=== PATIENT | male | born 1980 | race Caucasian/White ===

== ENCOUNTER → 2023-11-02 | Outpatient (CLI) | payer OTHER, SELFPAY ==
--- NOTE | 2023-11-02 10:33 | RAD_ITS ---
STUDY: X-RAY - RIGHT FOOT CLINICAL: Male, 43 years old. RIGHT FOOT ARTHRITIS TECHNIQUE: 2 views of the right foot. COMPARISON: None. FINDINGS: Normal talus, calcaneus, and tarsal bones. Normal visualized subtalar, talonavicular, calcaneocuboid, tarsal and tarsometatarsal articulations. Normal metatarsi. Normal metatarsophalangeal joint of the great toe. Normal tibial and fibular sesamoid bones. Normal interphalangeal joint of the great toe. Normal phalanges of the great toe. Normal second through fifth metatarsophalangeal joints. Normal interphalangeal joints and phalanges of the lesser toes. The soft tissue structures are unremarkable. There is no demonstrated fracture. RAD/Foot 2 Views IMPRESSION: Normal x-ray examination of the right foot. Electronically Signed: Donnie Nava MD at 11:12 EDT ,
== END | disposition home or self-care (01) ==
PROVIDERS: Referring Provider Chiropractor; Visit Provider Chiropractor
DX: M13.871 Other specified arthritis, right ankle and foot (principal)
CPT/HCPCS: 73620